=== PATIENT | female | born 1965 | race Asian ===

== ENCOUNTER 2023-04-19 12:04 | Emergency (ER) | payer MEDICAID, OTHER ==
[~2023-04-19] VITALS: Ht 162.6 cm; Wt 86.0 kg
[2023-04-19] MEDS ORDERED: SODIUM CHLORIDE 0.9% 1,000 ML IV ONE (12:30)
[2023-04-19 12:35] LABS: BG BASE EXCESS -0.4 mmol/L (-2.0-2.0); BG CARBOXYHEMOGLOBIN 0.7 % (0.5-1.5); BG DEOXYHEMOGLOBIN 6.8 % (0.0-5.0); BG METHEMOGLOBIN 0.1 % (0.0-1.5); BG OXYGEN SATURATION 93.1 % (92.0-98.5); BG OXYHEMOGLOBIN 92.4 % (94.0-97.0); BG PCO2 38.3 mmHg (35.0-45.0); BG PH 7.414 (7.350-7.450); BG PO2 67.1 mmHg (75.0-100.0); BG SAMPLE SITE RIGHT BRACHIAL; BG VENT MODE ROOM AIR
[2023-04-19 12:55] LABS: BASOPHILS % 2.7 % (0.0-2.0); EOSINOPHILS % 6.5 % (0.0-5.0); HEMATOCRIT. 36.5 % (36.0-48.0); HEMOGLOBIN. 12.1 g/dL (12.0-16.0); LYMPHOCYTES % 25.8 % (20.0-50.0); MEAN CORPUSCULAR HEMOGLOBIN 25.5 pg (28.0-32.0); MEAN CORPUSCULAR VOLUME 77.1 fL (81.0-99.0); MEAN PLATELET VOLUME 8.7 fl (7.4-10.4); MONOCYTES % 7.6 % (2.0-8.0); NEUTROPHILS % 57.4 % (40.0-76.0); PLATELET 276 x1000/uL (130-400); RED BLOOD CELL COUNT 4.73 mill/uL (4.2-5.4); RED CELL DISTRIBUTION WIDTH 15.2 % (11.6-14.6)
[2023-04-19 13:02] LABS: CHLORIDE 107 mEq/L (98-107)
[2023-04-19 13:05] LABS: INR 0.9; PROTHROMBIN TIME 10.2 sec (9.6-11.0)
[2023-04-19 13:13] LABS: ETHANOL BLOOD < 10 mg/dL (-10)
[2023-04-19] MEDS ORDERED: HYDRALAZINE 20MG/ML VIAL IV ONE (14:30)
[2023-04-19 15:15] VITALS: BP 139/79; PULSE 66; RESP 16; TEMP 98.5
== END 2023-04-19 15:42 | disposition home or self-care (01) ==
LOC: ER 12:04
DX: I10 Essential (primary) hypertension (principal); E11.9 Type 2 diabetes mellitus without complications
CPT/HCPCS: 80053; 80320; 85025; 85610; 84484; 36415; 71045; 70450; 82805; 82375; 93005; 96361; 96374; 99285; 36600; J0360; J7030; Z7610; G0480